=== PATIENT | female | born 1970 | race Caucasian/White ===

== ENCOUNTER 2018-11-28 11:06 | Emergency (ER) | payer OTHER ==
[~2018-11-28] VITALS: Ht 167.6 cm; Wt 107.3 kg
[~2018-11-28 11:06] MED LIST: DESV100T PO; GLIM4TAB4 PO; IBUP-1051 PO; LANTUS SQ; MECL-111 PO; METF500T PO; ONDA4TAB6 PO; PANT40TA39 PO; PROM25TA14 PO; SUCR1ORA2 PO; SYN0.1T PO
[2018-11-28 11:17] VITALS: BP 150/95
[2018-11-28 13:08] LABS: MONOTEST NEGATIVE (Neg)
== END 2018-11-28 14:03 | disposition home or self-care (01) ==
LOC: ER 11:07
DX: B34.9 Viral infection, unspecified (principal); E11.9 Type 2 diabetes mellitus without complications; Z98.890 Other specified postprocedural states; Z56.0 Unemployment, unspecified; Z88.0 Allergy status to penicillin; Z91.040 Latex allergy status; Z88.8 Allergy status to other drugs, medicaments and biological substances; Z79.4 Long term (current) use of insulin; Z79.84 Long term (current) use of oral hypoglycemic drugs; Z79.899 Other long term (current) drug therapy
CPT/HCPCS: 36415; 86308; 87502; 87503; 99283

== ENCOUNTER 2018-12-27 14:22 | Inpatient (IN) | payer OTHER ==
[~2018-12-27] VITALS: Ht 167.6 cm; Wt 112.5 kg
[2018-12-27 14:53] LABS: BASOPHILS # (AUTO) 0.1 X10'3 (0-0.2); BASOPHILS % (AUTO) 0.9 % (0-1); EOSINOPHILS # (AUTO) 0.2 X10'3 (0-0.9); EOSINOPHILS % (AUTO) 1.8 % (0-6); HEMATOCRIT 44.7 % (35.0-45.0); HEMOGLOBIN 15.1 g/dl (12.0-16.0); LYMPHOCYTES # (AUTO) 3.4 X10'3 (1.1-4.8); LYMPHOCYTES % (AUTO) 29.8 % (21-51); MEAN CORPUSCULAR HEMOGLOBIN 28.7 PG (27.0-31.0); MEAN CORPUSCULAR HGB CONC 33.7 g/dL (33.0-36.5); MEAN CORPUSCULAR VOLUME 85.1 FL (78-98); MEAN PLATELET VOLUME 7.8 FL (7.4-10.4); MONOCYTES # (AUTO) 0.6 X10'3 (0-0.9); MONOCYTES % (AUTO) 5.5 % (2-12); PLATELET COUNT 276 X10'3 (140-440); RED BLOOD COUNT 5.25 X10'6 (4.20-5.60); RED CELL DISTRIBUTION WIDTH 14.5 % (11.5-14.5); WHITE BLOOD COUNT 11.3 X10'3 (4.5-11.0)
[2018-12-27 15:04] LABS: PARTIAL THROMBOPLASTIN TIME 29 SECONDS (22-32)
[2018-12-27 15:07] LABS: ALANINE AMINOTRANSFERASE 32 U/L (12-78); ALBUMIN 3.6 G/DL (3.4-5.0); ALBUMIN/GLOBULIN RATIO 0.8 (1.1-1.5); ALKALINE PHOSPHATASE 131 IU/L (46-116); ANION GAP 12 (8-16); ASPARTATE AMINO TRANSFERASE 18 U/L (10-37); BILIRUBIN,TOTAL 0.6 MG/DL (0.1-1.0); BLOOD UREA NITROGEN 9 MG/DL (7-18); BUN/CREATININE RATIO 12.2 (6.6-38.0); CALCIUM 9.5 MG/DL (8.5-10.1); CHLORIDE 98 MMOL/L (99-107); CREATININE 0.74 MG/DL (0.40-0.90); GLUCOSE 360 MG/DL (70-104); POTASSIUM 4.6 MMOL/L (3.5-5.1); SODIUM 135 MMOL/L (135-145); TOTAL CARBON DIOXIDE 25.4 MMOL/L (24-32); TOTAL PROTEIN 8.1 G/DL (6.4-8.2); eGFR 83 ML/MIN
[2018-12-27] MEDS ORDERED: nitroGLYCERIN 0.4mg SUBLingual tab SL PRN ×2 (16:30→17:00)
[2018-12-27] MEDS ORDERED: aspirin 81mg tab.chew PO ONE (16:30)
[2018-12-27] MEDS ORDERED: acetaminophen 325mg tablet PO ONE (16:30)
[2018-12-27] MEDS ORDERED: MESSAGE TO PHARMACY PO ONE (16:55)
[2018-12-27] MEDS ORDERED: mag hydrox/Alum hydrox/simeth 30ml oral suspension PO PRN ×2 (16:55→17:00)
[2018-12-27] MEDS ORDERED: ondansetron/PF 4mg/2ml inj IV PRN ×2 (16:55→17:00)
[2018-12-27] MEDS ORDERED: glucagon, human recombinant 1mg kit SUBCUT PRN (16:55)
[2018-12-27] MEDS ORDERED: acetaminophen 325mg tablet PO PRN ×3 (16:55→17:00)
[2018-12-27] MEDS ORDERED: dextrose 50%-water 50ml dispensing syringe IV PRN ×2 (16:55)
[2018-12-27] MEDS ORDERED: dextrose ORAL solution 15 GM/59 ML bottle PO PRN ×2 (16:55)
[2018-12-27] MEDS ORDERED: magnesium hydroxide 30ml (MOM) UD suspension PO PRN ×2 (16:55→17:00)
[2018-12-27] MEDS ORDERED: HYDROcodone/acetaminophen 5mg/325mg tablet PO PRN (17:00)
[2018-12-27] MEDS ORDERED: regadenoson 0.4mg/5ml syringe IV ONE (17:00)
[2018-12-27] MEDS ORDERED: magnesium 2GM in 50ml NS 50 ML IV PRN (17:00)
[2018-12-27] MEDS ORDERED: magnesium Cl slow-release 64mg tablet PO PRN (17:00)
[2018-12-27] MEDS ORDERED: potassium Cl 20 mEq SR tablet PO PRN ×2 (17:00)
[2018-12-27] MEDS ORDERED: magnesium 4gm in 100ml NS 100 ML IV PRN (17:00)
[2018-12-27] MEDS ORDERED: metoprolol tartrate 1mg/ml inj IV PRN (17:00)
[2018-12-27] MEDS ORDERED: aminophylline 250mg/10ml inj. IV PRN (17:00)
[2018-12-27] MEDS ORDERED: diphenhydrAMINE 25mg capsule PO PRN (17:00)
[2018-12-27] MEDS ORDERED: morphine 2 MG/ML inj. syringe IV PRN ×2 (17:00)
[2018-12-27] MEDS ORDERED: HYDROcodone/acetaminophen 10/325mg tab PO PRN (17:00)
[2018-12-27] MEDS ORDERED: potassium CL 10mEq/100ml bag 100 ML IV PRN ×2 (17:00)
--- NOTE | 2018-12-27 17:18 | NUR ---
pt to call to find out dosages of other medications she takes. Med Rec to be completed still.
[2018-12-27 17:21] LABS: HEMOGLOBIN A1C 10.3 % (4.5-6.2)
[2018-12-27] MEDS ORDERED: GABA300C PO (17:23)
[2018-12-27] MEDS ORDERED: SUMA25TA35 PO (17:25)
[2018-12-27] MEDS ORDERED: BUSP10TA11 PO ×2 (17:27→17:28)
[2018-12-27] MEDS ORDERED: PANT-47 PO (17:31)
[2018-12-27] MEDS ORDERED: methylPREDNISolone sod succ 125mg/2ml vial IV ONE (17:40)
[2018-12-27] MEDS ORDERED: ipratropium/albuterol 3ml nebule NEB PRN (17:40)
[2018-12-27] MEDS: levoFLOXACIN-Levaquin 750MG/D5 150 ML IV SCH ×2 (18:36→18:54)
[2018-12-27] MEDS: normal saline 1000ml 1,000 ML IV SCH (18:54)
[2018-12-27] MEDS: insulin Lispro (HumaLOG) vial - multi-dose SQ SCH ×2 (19:40→21:32)
[2018-12-27] MEDS: ipratropium/albuterol 3ml nebule NEB SCH (20:11)
[2018-12-27] MEDS ORDERED: insulin glargine (Lantus) pen - multi-dose SQ SCH (21:00)
[2018-12-27] MEDS: heparin, porcine 5000 units/ml vial SQ SCH (21:22)
[2018-12-27 22:00] VITALS: BP 134/82
[2018-12-27 22:09] LABS: CLARITY,URINE CLOUDY (Clear); COLOR,URINE YELLOW (Yellow); GLUCOSE, URINE >=1000 mg/dl (Neg); KETONES,URINE TRACE mg/dl (Neg); LEUKOCYTE ESTERASE ,URINE NEGATIVE (Neg); NITRITES, URINE NEGATIVE (Neg); OCCULT BLOOD,URINE NEGATIVE (Neg); PH,URINE 6.5 (4.8-8.0); PROTEIN,URINE NEGATIVE (Neg)
[2018-12-27 22:10] LABS: UA COLLECTION TYPE NON-SPECIFIED
[2018-12-27 22:23] LABS: BACTERIA,URINE 4+ /HPF (Neg); RBC,URINE NONE SEEN /HPF (0-2); WBC,URINE 0-4 /HPF (0-4)
[2018-12-27 22:24] LABS: SQUAMOUS EPITHELIAL CELL,UR FEW /LPF (FEW)
[2018-12-27] MEDS: methylPREDNISolone sod succ 125mg/2ml vial IV SCH (23:53)
[2018-12-28] VITALS (9 sets, daily range): BP systolic 112–144; BP diastolic 65–77
--- NOTE | 2018-12-28 00:44 | NUR ---
Patient arrived to [facility] @1850 and was oriented to the room. A&Ox4 and stable vital signs. Placed on tele 47. In no apparent distress, denies shortness of breath, nausea/vomitting, and urinal symptoms. Only pain complaint is a migraine that she says comes and goes chronically.
[2018-12-28] MEDS: ipratropium/albuterol 3ml nebule NEB SCH (02:50)
[2018-12-28] MEDS: normal saline 1000ml 1,000 ML IV SCH (02:59)
[2018-12-28 03:13] LABS: BASOPHILS % (AUTO) 0.2 % (0-1); EOSINOPHILS % (AUTO) 0 % (0-6); HEMATOCRIT 43.1 % (35.0-45.0); HEMOGLOBIN 14.6 g/dl (12.0-16.0); LYMPHOCYTES # (AUTO) 1.2 X10'3 (1.1-4.8); LYMPHOCYTES % (AUTO) 12.7 % (21-51); MEAN CORPUSCULAR HEMOGLOBIN 28.9 PG (27.0-31.0); MEAN CORPUSCULAR VOLUME 85.1 FL (78-98); MEAN PLATELET VOLUME 8.2 FL (7.4-10.4); MONOCYTES # (AUTO) 0.1 X10'3 (0-0.9); MONOCYTES % (AUTO) 0.9 % (2-12); NEUTROPHILS # (AUTO) 7.9 X10'3 (1.8-7.7); NEUTROPHILS % (AUTO) 86.2 % (42-75); PLATELET COUNT 246 X10'3 (140-440); RED BLOOD COUNT 5.07 X10'6 (4.20-5.60); RED CELL DISTRIBUTION WIDTH 14.7 % (11.5-14.5); WHITE BLOOD COUNT 9.2 X10'3 (4.5-11.0)
[2018-12-28 03:15] LABS: ANION GAP 14 (8-16); BLOOD UREA NITROGEN 12 MG/DL (7-18); CHLORIDE 100 MMOL/L (99-107); GLUCOSE 402 MG/DL (70-104); POTASSIUM 4.3 MMOL/L (3.5-5.1); SODIUM 136 MMOL/L (135-145); TOTAL CARBON DIOXIDE 21.9 MMOL/L (24-32)
[2018-12-28 03:16] LABS: ALANINE AMINOTRANSFERASE 34 U/L (12-78); ALBUMIN 3.3 G/DL (3.4-5.0); ALBUMIN/GLOBULIN RATIO 0.7 (1.1-1.5); ALKALINE PHOSPHATASE 113 IU/L (46-116); ASPARTATE AMINO TRANSFERASE 18 U/L (10-37); BILIRUBIN,TOTAL 0.8 MG/DL (0.1-1.0); BUN/CREATININE RATIO 14.5 (6.6-38.0); CALCIUM 9.4 MG/DL (8.5-10.1); CREATININE 0.83 MG/DL (0.40-0.90); TOTAL PROTEIN 7.8 G/DL (6.4-8.2); eGFR 73 ML/MIN
[2018-12-28 03:20] LABS: CHOL/HDL RATIO 3.7 (0.00-4.99); CHOLESTEROL 146 MG/DL (0-200); HDL CHOLESTEROL 39 MG/DL (35-60); LDL CHOLESTEROL 92 MG/DL (50-100); MAGNESIUM 1.7 MG/DL (1.5-2.4); PHOSPHORUS 2.6 MG/DL (2.3-4.5); TRIGLYCERIDES 101 MG/DL (20-135)
--- NOTE | 2018-12-28 04:48 | NUR ---
Patient in room PCU 3012. I have received report from KRYSTAL Pritchard in ER and had the opportunity to ask questions and assume patient care.
--- NOTE | 2018-12-28 06:20 | NUR ---
Patient in room [facility] 3012. I have received report from and had the opportunity to ask questions and assume patient care. Addendum: 12/28/18 at 0628 by Julia Chance RN From Shamika RICE
--- NOTE | 2018-12-28 06:35 | NUR ---
Problems reprioritized. Patient report given, questions answered & plan of care reviewed with KRYSTAL Murillo.
[2018-12-28] MEDS ORDERED: levoTHYROXINE 112mcg tablet PO SCH (07:00)
[2018-12-28] MEDS: methylPREDNISolone sod succ 125mg/2ml vial IV SCH (07:08)
[2018-12-28] MEDS: heparin, porcine 5000 units/ml vial SQ SCH (07:10)
[2018-12-28] MEDS: levoFLOXACIN-Levaquin 750MG/D5 150 ML IV SCH (07:10)
[2018-12-28] MEDS ORDERED: pantoprazole 40mg Tablet.DR PO SCH (08:00)
[2018-12-28] MEDS: K and/or MAG REPLACEMENT MC SCH ×2 (08:00→11:05)
[2018-12-28] MEDS ORDERED: regadenoson 0.4mg/5ml syringe IV PRN (08:00)
[2018-12-28] MEDS ORDERED: levoTHYROXINE 100mcg tablet PO SCH (08:00)
--- NOTE | 2018-12-28 08:00 | NUR ---
Patient has not been given insulin for her blood sugar due to the fact that she is NPO, does not regularly take insulin, is going for a arabella, and patient deferred. Will continue to monitor patient and cover the patient when she is back from her procedure. Patient has no complaints at this time.
[2018-12-28] MEDS ORDERED: regadenoson 0.4mg/5ml syringe IV ONE (09:00)
[2018-12-28] MEDS ORDERED: pneumococcal 23-VAL P-sac vacc 25 mcg/0.5ml vial IMVAC ONE (10:00)
--- NOTE | 2018-12-28 12:01 | NUR ---
Pneumococcal vaccine given, educated on need even though the pt is 48, it was recommended to her to get it because she gets PNA every year per pt.
--- NOTE | 2018-12-28 12:18 | NUR ---
DM consult: Pt with A1c 10.3 seen at bedside. Pt reports A1c previously 8.0 however up to 12.4 a few months ago. Pt reports increase in A1c is r/t decreased self care and increased stress secondary to having to care for multiple family members. Pt reports she takes her DM medications mostly per rx however states she adjusts her Metformin to BID rather than TID and doesn't always take her Lantus. Pt reports checking her BG levels BID fasting in the morning and HS with resulting numbers 150-170. RD encouraged pt manage her DM and take her medications per rx, pt expressed clear understanding. Pt reports she doesn't follow any diet specifically however tries to cook at home more in order to control what she eats. Pt provided with written and verbal DM education with referral to outpatient class and RD contact information. Pt endorses a good appetite and denies food allergies, difficulty chewing/swallowing, or constipation/diarrhea. Will continue to follow. Addendum: 12/28/18 at [address] Amended: Links added.
[2018-12-28] MEDS: insulin Lispro (HumaLOG) vial - multi-dose SQ SCH (12:39)
[2018-12-28] MEDS ORDERED: PRED10TA23 PO (12:41)
[2018-12-28] MEDS ORDERED: SYN0.112T PO (12:41)
[2018-12-28] MEDS ORDERED: LEVO500T89 PO (12:41)
[2018-12-28] MEDS ORDERED: ALBU8.5H8 INH (12:41)
--- NOTE | 2018-12-28 13:35 | NUR ---
Pt okay to d/c per MD, called in new medications to [facility] in [place], discussed d/c instructions w/ pt, educated on DM survival skills and smoking cessation, new medications reviewed. Discontinued PIV and took off tele monitor. Pt left the unit via wheelchair w/ RN at 1335.
--- NOTE | 2018-12-28 15:18 | NUR ---
[employer] documentation: I have reviewed and agree with all interventions, assessments performed and documented by Garima RICE. [employer] documentation: I have reviewed and agree with all interventions, assessments performed and documented by KRYSTAL Painting.
[2018-12-28] MEDS ORDERED: gabapentin 300mg capsule PO SCH (16:00)
[2018-12-28] MEDS ORDERED: busPIRone 5mg tablet PO SCH (17:00)
[2018-12-29] MEDS ORDERED: busPIRone 5mg tablet PO SCH (07:30)
[2018-12-29] MEDS ORDERED: pantoprazole 40mg Tablet.DR PO SCH (08:00)
== END 2018-12-28 14:32 | disposition home or self-care (01) | DRG 202 ==
LOC: ER 14:23 → ED HOLD 17:04 → PCU 3S 18:50
PROVIDERS: ADMIT Family Medicine; ATTEND Family Medicine
PROC: 3E0234Z Introduction of Serum, Toxoid and Vaccine into Muscle, Percutaneous Approach (ICD-10-PCS; principal; 2018-12-28)
PROC: 4A02XM4 Measurement of Cardiac Total Activity, External Approach (ICD-10-PCS; 2018-12-28)
PROC: 3E033HZ Introduction of Radioactive Substance into Peripheral Vein, Percutaneous Approach (ICD-10-PCS; 2018-12-28)
DX: J20.9 Acute bronchitis, unspecified (principal); J44.1 Chronic obstructive pulmonary disease with (acute) exacerbation; Z68.41 Body mass index [BMI] 40.0-44.9, adult; J44.0 Chronic obstructive pulmonary disease with (acute) lower respiratory infection; E03.9 Hypothyroidism, unspecified; E11.40 Type 2 diabetes mellitus with diabetic neuropathy, unspecified; F17.210 Nicotine dependence, cigarettes, uncomplicated; I48.0 Paroxysmal atrial fibrillation; I10 Essential (primary) hypertension; E78.5 Hyperlipidemia, unspecified; R07.89 Other chest pain; E66.01 Morbid (severe) obesity due to excess calories; K21.9 Gastro-esophageal reflux disease without esophagitis; F32.9 Major depressive disorder, single episode, unspecified; F41.9 Anxiety disorder, unspecified; Z79.890 Hormone replacement therapy; Z23 Encounter for immunization; Z88.1 Allergy status to other antibiotic agents; Z91.041 Radiographic dye allergy status; Z91.040 Latex allergy status; Z88.0 Allergy status to penicillin; Z91.048 Other nonmedicinal substance allergy status; Z71.6 Tobacco abuse counseling
CPT/HCPCS: 36415; 71045; 78452; 80053; 80061; 81001; 82948; 83036; 83735; 83880; 84100; 84443; 84484; 85025; 85610; 85730; 87081; 90732; 93005; 93017; 93306; 94640; 94760; 99285; A9500; G0378; J0280; J1644; J1815; J1956; J2785; J2930; J7030

== ENCOUNTER 2021-03-18 08:07 | Emergency (ER) | payer OTHER ==
[~2021-03-18] VITALS: Ht 167.6 cm; Wt 93.0 kg
[~2021-03-18 08:07] MED LIST changes: +ALBU8.5H17 INH; +BUSP10TA11 PO; -DESV100T PO; +GABA300C PO; -GLIM4TAB4 PO; -IBUP-1051 PO; -MECL-111 PO; +PANT-47 PO; -PANT40TA39 PO; -PROM25TA14 PO; -SUCR1ORA2 PO; +SUMA25TA35 PO; +SYN0.112T PO; -SYN0.1T PO
[2021-03-18 08:15] VITALS: BP 122/61
[2021-03-18 08:59] LABS: BASOPHILS # (AUTO) 0.1 X10'3 (0-0.2); EOSINOPHILS # (AUTO) 0.2 X10'3 (0-0.9); EOSINOPHILS % (AUTO) 3.2 % (0-6); HEMOGLOBIN 12.8 g/dl (12.0-16.0); LYMPHOCYTES # (AUTO) 2.7 X10'3 (1.1-4.8); MEAN CORPUSCULAR HEMOGLOBIN 26.9 PG (27.0-31.0); MEAN CORPUSCULAR HGB CONC 33.8 g/dL (33.0-36.5); MEAN CORPUSCULAR VOLUME 79.6 FL (78-98); MEAN PLATELET VOLUME 7.6 FL (7.4-10.4); MONOCYTES # (AUTO) 0.6 X10'3 (0-0.9); MONOCYTES % (AUTO) 7.8 % (2-12); NEUTROPHILS # (AUTO) 4.1 X10'3 (1.8-7.7); PLATELET COUNT 263 X10'3 (140-440); RED BLOOD COUNT 4.77 X10'6 (4.20-5.60); RED CELL DISTRIBUTION WIDTH 15.6 % (11.5-14.5); WHITE BLOOD COUNT 7.7 X10'3 (4.5-11.0)
[2021-03-18 10:25] LABS: ALANINE AMINOTRANSFERASE 30 U/L (12-78); ALBUMIN 3.2 G/DL (3.4-5.0); ALBUMIN/GLOBULIN RATIO 0.8 (1.1-1.5); ALKALINE PHOSPHATASE 86 IU/L (46-116); ANION GAP 7 (8-16); ASPARTATE AMINO TRANSFERASE 16 U/L (10-37); BILIRUBIN,TOTAL 0.6 MG/DL (0.1-1.0); BLOOD UREA NITROGEN 13 MG/DL (7-18); BUN/CREATININE RATIO 19.7 (6.6-38.0); CALCIUM 8.5 MG/DL (8.5-10.1); CHLORIDE 106 MMOL/L (99-107); CREATININE 0.66 MG/DL (0.40-0.90); GLUCOSE 254 MG/DL (70-104); SODIUM 138 MMOL/L (135-145); TOTAL CARBON DIOXIDE 25.4 MMOL/L (24-32); TOTAL PROTEIN 7.1 G/DL (6.4-8.2); eGFR > 90 ML/MIN
[2021-03-18] MEDS ORDERED: AZIT-83 PO (10:41)
--- NOTE | 2021-03-18 10:52 | NUR ---
Pt given and understands d/c instructions. Ambulatory with a steady gait.
== END 2021-03-18 10:45 | disposition home or self-care (01) ==
LOC: ER 08:09
DX: R05.3 Chronic cough (principal); E11.9 Type 2 diabetes mellitus without complications; Z87.01 Personal history of pneumonia (recurrent); Z56.0 Unemployment, unspecified; Z88.0 Allergy status to penicillin; Z88.1 Allergy status to other antibiotic agents; Z91.040 Latex allergy status; Z91.041 Radiographic dye allergy status; Z91.048 Other nonmedicinal substance allergy status; Z79.2 Long term (current) use of antibiotics; Z79.899 Other long term (current) drug therapy; Z79.4 Long term (current) use of insulin
CPT/HCPCS: 36415; 71045; 80053; 85025; 99284

== ENCOUNTER 2021-12-23 17:22 | Emergency (ER) | payer OTHER ==
[~2021-12-23] VITALS: Ht 167.6 cm; Wt 97.0 kg
[2021-12-23] MEDS ORDERED: GUAI400T92 PO (18:19)
[2021-12-23] MEDS ORDERED: ONDA4TAB12 PO (18:19)
[2021-12-23] MEDS ORDERED: BENZ-38 PO (18:19)
[2021-12-23] MEDS ORDERED: ALBU8HFA PO (18:19)
[2021-12-23 20:06] VITALS: BP 141/81
== END 2021-12-23 20:07 | disposition home or self-care (01) ==
LOC: ER 17:22
DX: B34.9 Viral infection, unspecified (principal); Z20.822 Contact with and (suspected) exposure to COVID-19; R11.2 Nausea with vomiting, unspecified; R19.7 Diarrhea, unspecified; J44.9 Chronic obstructive pulmonary disease, unspecified; E11.9 Type 2 diabetes mellitus without complications; F17.200 Nicotine dependence, unspecified, uncomplicated; Z88.0 Allergy status to penicillin; Z91.041 Radiographic dye allergy status; Z91.09 Other allergy status, other than to drugs and biological substances; Z56.0 Unemployment, unspecified
CPT/HCPCS: 71045; 87502; 87503; 87635; 99284; C9803

== ENCOUNTER 2022-04-29 17:53 | Emergency (ER) | payer OTHER ==
[~2022-04-29] VITALS: Ht 167.6 cm; Wt 92.0 kg
[~2022-04-29 17:53] MED LIST changes: +GUAI400T92 PO; +ONDA4TAB12 PO
[2022-04-29 18:16] VITALS: BP 141/86
[2022-04-29] MEDS ORDERED: METH4TAB3 PO (19:30)
[2022-04-29] MEDS ORDERED: CEFD300C3 PO (19:30)
== END 2022-04-29 19:44 | disposition home or self-care (01) ==
LOC: ER 17:53
DX: J20.9 Acute bronchitis, unspecified (principal); R51.9 Headache, unspecified; J44.9 Chronic obstructive pulmonary disease, unspecified; H92.09 Otalgia, unspecified ear; E11.9 Type 2 diabetes mellitus without complications; Z88.0 Allergy status to penicillin; Z91.041 Radiographic dye allergy status; Z91.040 Latex allergy status; Z56.0 Unemployment, unspecified
CPT/HCPCS: 99283

== ENCOUNTER 2022-09-14 23:11 | Emergency (ER) | payer OTHER ==
[~2022-09-14] VITALS: Ht 167.6 cm; Wt 93.6 kg
[~2022-09-14 23:11] MED LIST changes: +METH4TAB3 PO
[2022-09-14 23:52] VITALS: TEMP 97.9
[2022-09-15 02:26] VITALS: BP 94/50; PULSE 84; RESP 17; O2SAT 98
== END 2022-09-15 02:35 | disposition home or self-care (01) ==
LOC: ER 23:11
DX: M25.551 Pain in right hip (principal); M25.521 Pain in right elbow; M25.511 Pain in right shoulder; Z88.0 Allergy status to penicillin; Z79.899 Other long term (current) drug therapy; Z88.1 Allergy status to other antibiotic agents; Z91.040 Latex allergy status; Z79.1 Long term (current) use of non-steroidal anti-inflammatories (NSAID); J44.9 Chronic obstructive pulmonary disease, unspecified; E11.9 Type 2 diabetes mellitus without complications; Z59.00 Homelessness unspecified; Z79.2 Long term (current) use of antibiotics
CPT/HCPCS: 73030; 73080; 99284